=== PATIENT | male | born 1995 | race Two or more races ===

== ENCOUNTER 2019-01-12 15:06 | Emergency (ER) | payer SELFPAY ==
[~2019-01-12] VITALS: Ht 175.3 cm; Wt 77.0 kg
[2019-01-12 15:08] VITALS: BP 133/85
== END 2019-01-12 15:46 | disposition home or self-care (01) ==
LOC: ED 15:35
DX: L24.9 Irritant contact dermatitis, unspecified cause (principal)
CPT/HCPCS: 99281

== ENCOUNTER 2020-07-19 14:47 | Emergency (ER) | payer SELFPAY ==
[~2020-07-19] VITALS: Ht 175.3 cm; Wt 82.6 kg
[2020-07-19 14:51] VITALS: BP 133/62
== END 2020-07-19 15:44 | disposition home or self-care (01) ==
LOC: ED 15:30
DX: A60.01 Herpesviral infection of penis (principal)
CPT/HCPCS: 99283

== ENCOUNTER 2021-01-18 11:56 | Emergency (ER) | payer MEDICAID ==
[~2021-01-18] VITALS: Ht 175.3 cm; Wt 84.5 kg
[2021-01-18 12:01] VITALS: BP 134/76
--- NOTE | 2021-01-18 12:40 | NUR ---
PT AMBULATORYTO ROOM 33 W/ C/O SORE THROAT, PUSTULES, AND RED THROAT X 1 WK. PT STATES HE THINKS HE HAS STREP THROAT. PT RESTING ON MALICK. GIN.
--- NOTE | 2021-01-18 13:43 | NUR ---
PT CHART REVIEWED AND PLACED FOR RECHECK.
== END 2021-01-18 14:44 | disposition home or self-care (01) ==
LOC: ED 14:00
DX: J02.8 Acute pharyngitis due to other specified organisms (principal); B97.89 Other viral agents as the cause of diseases classified elsewhere
CPT/HCPCS: 87081; 87880; 99283